=== PATIENT | male | born 1960 | race Caucasian/White ===

== ENCOUNTER → 2023-06-15 10:39 | Outpatient (CLI) | payer OTHER, SELFPAY ==
--- NOTE | 2023-06-15 10:43 | DI.RAD.S_ITS ---
PROCEDURE: XR HIP W PEL IF DONE STANISLAV MIN 4V INDICATIONS: RIGHT HIP PAIN TECHNIQUE: 2 view(s) of the hip acquired. COMPARISON: None. FINDINGS: Bones: Patient is status post bilateral hip arthroplasty, with hardware components in expected positions. The hip joint appears congruent. The visualized bony structures appear intact without acute fracture. There are diffusely scattered ill-defined sclerotic foci seen throughout the imaged pelvis and lower lumbar spine. No evidence for acute fracture. Soft tissues: No suspicious soft tissue calcifications. No suspicious soft tissue densities. IMPRESSION: Status post bilateral total hip arthroplasty without evidence for acute hardware complication. Right hip without acute fracture or dislocation. Diffusely scattered sclerotic foci noted in the bilateral pelvis and lower lumbar spine. This is worrisome for possible osseous metastatic disease. Recommend clinical correlation with past medical history and consideration of outpatient nuclear medicine bone scan to further evaluate. Dictated by: Joao Canseco M.D. on 06/15/2023 at 11:52 Approved by: Joao Canseco M.D. on 06/15/2023 at 11:53
--- NOTE | 2023-06-15 10:43 | DI.RAD.S_ITS ---
PROCEDURE: XR LUMBAR SPINE MIN 4V INDICATIONS: BACK PAIN TECHNIQUE: 5 views of the lumbar spine were acquired, including bilateral oblique views. COMPARISON: [facility], CR, XR HIP W PEL IF DONE STANISLAV 3TO4V, 06/15/2023, 10:45. FINDINGS: Bones: 5 nonrib-bearing vertebrae are present. There is levocurvature of the lumbar spine centered at L3. Diffusely scattered ill-defined sclerotic foci seen throughout the imaged pelvis and spine. No acute compression fracture seen. Postsurgical changes of bilateral total hip arthroplasty. Moderate multilevel lumbar spondylitic changes with severe mid and lower lumbar facet arthropathy. Soft tissues: Overlying bowel gas pattern is normal. No suspicious soft tissue calcifications. Oblique images: No pars defects. IMPRESSION: Lumbar spine without acute osseous abnormalities. Moderate multilevel lumbar spondylosis with severe mid and lower lumbar facet arthropathy. Diffusely scattered ill-defined sclerotic foci seen throughout the imaged pelvis and spine worrisome for osseous metastases. Recommend correlation with clinical history with consideration of whole-body nuclear medicine bone scan. Dictated by: Joao Canseco M.D. on 06/15/2023 at 11:46 Approved by: Joao Canseco M.D. on 06/15/2023 at 11:49
== END ==
LOC: RAD 10:42
PROVIDERS: Referring Provider Physical Medicine & Rehabilitation; Visit Provider Physical Medicine & Rehabilitation
DX: M47.816 Spondylosis without myelopathy or radiculopathy, lumbar region (principal); M25.551 Pain in right hip; M54.9 Dorsalgia, unspecified; Z96.643 Presence of artificial hip joint, bilateral
CPT/HCPCS: 72110; 73522

== ENCOUNTER 2023-08-06 13:58 | Outpatient (CLI) | payer OTHER, SELFPAY ==
[2023-08-06] VITALS (8 sets, daily range): BP systolic 111–134; BP diastolic 53–71; PULSE 91–94; RESP 13–18; TEMP 37.1; O2SAT 94–100
--- NOTE | 2023-08-06 14:30 | DI.RAD.S_ITS ---
PROCEDURE: PAIN L/S TRANSFORAMINAL INJECT INDICATIONS: Right L4-5 transforaminal JAQUAN COMPARISON: None. FINDINGS: Fluoroscopic spot filming was performed to verify placement of spinal needles at the right L4-5 level(s), as labeled on the films. Appropriate location(s) of the needle tip(s) was confirmed by injection of iodinated contrast. IMPRESSION: Fluoro guidance was provided intraoperatively for right L4-5 transforaminal JAQUAN performed by ordering physician. Dictated by: Rory Castillo M.D. on 08/06/2023 at 17:29 Approved by: Rory Castillo M.D. on 08/06/2023 at 17:29
[2023-08-06] MEDS: MIDAZOLAM 2 MG/2 ML VIAL 1 MG IV (15:06)
[2023-08-06] MEDS: DEXAMETHASONE 10 MG/ML VIAL 20 MG INJ (15:11)
[2023-08-06] MEDS: BUPIVACAINE 0.25% (PF) VIAL 2 ML INJ (15:12)
[2023-08-06] MEDS: iopamidoL 15 ML VIAL 3 ML INJ (15:12)
[2023-08-06] MEDS: BETAMETHASONE 30 MG/5 ML MDV 12 MG INJ (15:12)
[2023-08-06] MEDS: DEXAMETHASONE 10 MG/ML VIAL INJ (15:22)
--- NOTE | 2023-08-06 15:27 | P.PCN_ITS ---
Date/Time/Diagnoses Date of procedure: 08/06/23 Time of procedure: 15:27 Pre-procedure diagnosis: 1. FORAMINAL STENOSIS WITH LE SYMPTOMS Post-procedure diagnosis: same Procedure Notes Procedure: 1. FLUOROSCOPICALLY GUIDED CONTRAST CONTROLLED TRANSFORAMINAL EPIDURAL STEROID INJECTION - RIGHT L4/5 TFESI Indications: Raúl is referred for treatment of Foraminal Stenosis with Right LE Symptoms Physician: Clarence Whalen Total Fluoroscopy time (seconds): 22 Total sedation minutes: 17 Complications: none Procedure in detail & Post-procedure care: FINDINGS Foraminal Nerve Root Compression secondary to disc disease and facet hypertrophy DESCRIPTION OF PROCEDURE Following review of allergy and review of potential side effects and complications, including, but not necessarily limited to, infection, allergic reaction, local tissue breakdown, stroke, temporary or permanent nerve injury, paralysis, and possible , the patient indicated that the patient understood and agreed to proceed. An informed consent document was signed by the patient, witnessed by a nurse, and placed in the patient's chart. Additionally, other treatment options including medications, modalities, and physical therapy were reviewed with the patient. After review of previous anaesthesic history and IV conscious sedation the patient was deemed safe to proceed with today?s procedure with IV conscious sedation as ASA class II designation. Safety time-out was performed to confirm patient ID, procedure to be performed and site of procedure. IV sedation was accomplished with a combination of 1mg of Versed was administered by the RN after DO order, titrated to patient comfort during the course of the procedure while the patient remained responsive to all verbal commands In the prone position following sterile prep and drape of the lumbar region, the right L4/5 posterior neuroforamen was identified fluoroscopically. The skin was anesthetized via a 25-gauge 1.5-inch needle with 1% lidocaine solution. At this point, a 22-gauge 5-inch spinal needle was atraumatically introduced and advanced under fluoroscopic guidance through the posterior right L4/5 neuroforamen to approximately the anterior aspect of the canal. Depth was confirmed on lateral view. Following negative aspiration, injection of approximately 1.5cc of Isovue 200 under live fluoroscopy in the AP view confirmed excellent flow along the nerve root, into the epidural space without vascular or intrathecal uptake observed Radiological data, including multiple fluoroscopic views of the lumbosacral spine, reveal a spinal needle at the right L4/5 posterior neuroforamen. Subsequent views show flow of contrast material flowing superiorly and inferiorly along the nerve root confirming epidural flow. Subsequently, a test dose of 1.5 cc of 1% lidocaine solution was administered and patient was observed for two minutes for signs or symptoms of complications, including abdominal pain, shortness of breath, bilateral upper or lower extremity weakness, nausea and vomiting, prior to steroid injection. At this point, a total of 4cc or 20mg of dexamethasone and 12mg of betamethasone was injected without incident. The procedure tolerated the procedure well without signs or symptoms of complications prior to transfer to the recovery area continued monitoring without incident. The patient was then transferred to the recovery area where they were observed for an appropriate time after the injection. The patient reported a VAS score of 9 prior to the procedure and a post- procedure VAS of 2. POST OP INSTRUCTIONS The patient was provided a Pain Log to continue to record their response to the target-specific procedure prior to follow-up visit with their referring physician. Additionally, specific post-injection care instructions and a contact number to our office were provided if concerns arise regarding possible complications associated with the procedure are suspected.
== END 2023-08-06 16:00 | disposition home or self-care (01) ==
PROVIDERS: Referring Provider Physical Medicine & Rehabilitation; Visit Provider Physical Medicine & Rehabilitation
DX: M48.061 Spinal stenosis, lumbar region without neurogenic claudication (principal); M51.16 Intervertebral disc disorders with radiculopathy, lumbar region; M47.26 Other spondylosis with radiculopathy, lumbar region
CPT/HCPCS: 64483; 99152; J0702; J1100; J2250; J3490